=== PATIENT | male | born 1990 | race Caucasian/White ===

== ENCOUNTER 2019-11-06 18:37 | Emergency (ER) | payer OTHER ==
[~2019-11-06] VITALS: Ht 170.2 cm; Wt 97.3 kg
[2019-11-06] MEDS ORDERED: zicam (18:46)
[2019-11-06] MEDS ORDERED: ACETAMINOPHEN 325 MG TAB PO ONE (19:15)
[2019-11-06] MEDS ORDERED: NS 1,000 ML IV ONE (19:45)
[2019-11-06 20:05] LABS: ALBUMIN 4.3 GM/DL (3.2-5.2); ALT/SGPT 35 U/L (12-78); BILIRUBIN,DIRECT 0.2 MG/DL (0.0-0.2); BILIRUBIN,TOTAL 0.7 MG/DL (0.2-1.0); LIPASE 59 U/L (73-393); TOTAL PROTEIN 7.8 GM/DL (6.4-8.2)
[2019-11-06 20:07] LABS: MONO REFLEX EBV COMP NEGATIVE (NEGATIVE)
[2019-11-06 20:24] LABS: BASO % 0.1 % (0.0-1.0); HEMATOCRIT 44.6 % (42.0-52.0); HEMOGLOBIN 15.1 g/dl (13.5-17.5); LYMPH # 0.6 10^3/uL (1.5-5.0); LYMPH % 5.3 % (24.0-44.0); MEAN CORPUSCULAR HGB CONC 33.9 g/dl (32.0-36.5); MEAN CORPUSCULAR VOLUME 88.5 fl (80.0-96.0); MONO # 0.4 10^3/uL (0.0-0.8); MONO % 3.6 % (0.0-5.0); NEUTROPHILS # 9.5 10^3/uL (1.5-8.5); NEUTROPHILS % 90.7 % (36.0-66.0); PLATELET COUNT, AUTOMATED 166 10^3/uL (150-450); RED BLOOD COUNT 5.04 10^6/uL (4.30-6.10); WHITE BLOOD COUNT 10.4 10^3/uL (4.0-10.0)
[2019-11-06] MEDS ORDERED: ISOVUE-370 76% 100ML VIAL As Ordered ONE (20:51)
[2019-11-06] MEDS ORDERED: KETOROLAC 30 MG/ML 1ML VIAL IV ONE (21:00)
--- NOTE | 2019-11-06 21:19 | REPVR ---
PROCEDURE INFORMATION: Exam: CT Neck With Contrast Exam date and time: 11/06/2019 8:57 PM Age: 29 years old Clinical indication: Dysphagia / difficulty swallowing; Additional info: Dysphagia, fever, some drooling TECHNIQUE: Imaging protocol: Computed tomography images of the neck with intravenous contrast. Radiation optimization: All CT scans at this facility use at least one of these dose optimization techniques: automated exposure control; mA and/or kV adjustment per patient size (includes targeted exams where dose is matched to clinical indication); or iterative reconstruction. Contrast material: ISOVUE 370; Contrast volume: 75 ml; Contrast route: INTRAVENOUS (IV); COMPARISON: No relevant prior studies available. FINDINGS: Nasopharynx: Unremarkable. Oropharynx: Unremarkable. No significant tonsillar enlargement or peritonsillar abscess. Hypopharynx: Mild hypopharyngeal mucosal edema. Larynx: Unremarkable. Normal epiglottis. Retropharyngeal space: There is a small a retropharyngeal effusion. Submandibular/Parotid glands: Normal. Glands are normal in size. Thyroid: Normal. No enlarged or calcified nodules. Lymph nodes: Mildly enlarged upper cervical lymph nodes. No masses are seen. Trachea: Visualized trachea is unremarkable. Lungs: Unremarkable as visualized. Bones/joints: Unremarkable. No acute fracture. Soft tissues: No enhancing fluid collection or drainable abscess. IMPRESSION: Mild hypo pharyngeal mucosal edema with small retropharyngeal effusion and mildly enlarged upper cervical lymph nodes suggesting a viral syndrome. No peritonsillar abscess or mass is identified. Electronically signed by: Wilian Gross On 11/06/2019 21:18:56 PM
[2019-11-06] MEDS ORDERED: AUGM875T28 PO (22:28)
[2019-11-06] MEDS ORDERED: DECA4TAB PO (22:28)
[2019-11-06] MEDS ORDERED: MAGICMW SSP (22:28)
[2019-11-06] MEDS ORDERED: dexameTHASONE 4 MG/ML 1ML VIAL (J1100 PER 1MG) PO ONE ×2 (22:30)
[2019-11-06] MEDS ORDERED: AUGMENTIN 875 MG TAB PO ONE (22:30)
[2019-11-06 22:43] VITALS: BP 118/82
--- NOTE | 2019-11-07 08:22 | REP ---
REASON: Pyrexia. PRIORS: None. FINDINGS: The superior mediastinal structures are midline. The cardiac silhouette is unremarkable in size, shape, and position. The diaphragmatic surfaces of the lungs are regular, and the costophrenic angles are clear. The pulmonary pina are clear. The imaged osseous structures are intact. IMPRESSION: There is no acute cardiopulmonary disease. Electronically Signed by Tae Oswald DO 11/07/2019 11:38 A
--- NOTE | 2019-11-07 13:15 | ED PDOC ---
Post-Departure Follow-Up ft kevin serna faxed formal report of ct neck for fu Macy Figueredo MD Nov 07, 2019 13:15
[2019-11-08 19:11] LABS: EBV VIRAL CAPSID AG IgG 58.6 U/mL (0.0-17.9); EBV VIRAL CAPSID AG IgM <36.0 U/mL (0.0-35.9)
== END 2019-11-06 22:47 | disposition home or self-care (01) ==
LOC: M ED 18:37
DX: R50.9 Fever, unspecified (principal); J02.9 Acute pharyngitis, unspecified; R13.10 Dysphagia, unspecified; R00.0 Tachycardia, unspecified; Z20.828 Contact with and (suspected) exposure to other viral communicable diseases
CPT/HCPCS: 70491; 71046; 80047; 80076; 83690; 85025; 86308; 86664; 86665; 87040; 87880; 96361; 96374; 99284; J1100; J1885; Q9967; U0002